=== PATIENT | male | born 1975 | race Caucasian/White ===

== ENCOUNTER → 2021-05-19 | Outpatient (CLI) | payer BC | LOC: EXRD 14:08 | DX: R22.1 Localized swelling, mass and lump, neck (principal); D37.030 Neoplasm of uncertain behavior of the parotid salivary glands; K11.8 Other diseases of salivary glands; Z85.79 Personal history of other malignant neoplasms of lymphoid, hematopoietic and related tissues | CPT/HCPCS: 76536 ==

== ENCOUNTER → 2021-06-15 | Outpatient (CLI) | payer BC | LOC: US 09:21 → CT 06-18 09:00 | DX: D37.030 Neoplasm of uncertain behavior of the parotid salivary glands (principal); R59.0 Localized enlarged lymph nodes ==

== ENCOUNTER → 2021-06-18 | Outpatient (CLI) | payer BC | LOC: CT 08:41 | DX: D37.030 Neoplasm of uncertain behavior of the parotid salivary glands (principal); R22.1 Localized swelling, mass and lump, neck; R93.89 Abnormal findings on diagnostic imaging of other specified body structures | CPT/HCPCS: 70491; Q9967 ==

== ENCOUNTER → 2022-01-23 | Outpatient (CLI) | payer BC | LOC: SLEEP 09:57 | DX: G47.33 Obstructive sleep apnea (adult) (pediatric) (principal) | CPT/HCPCS: 95811 ==